=== PATIENT | male | born 1990 | race African-American/Black ===

== ENCOUNTER 2017-11-18 04:18 | Emergency (ER) | payer SELFPAY ==
[~2017-11-18] VITALS: Ht 172.7 cm; Wt 205.0 kg
[2017-11-18 04:30] VITALS: PULSE 100; RESP 16; O2SAT 97
[2017-11-18 04:37] VITALS: BP 136/58; PULSE 102; RESP 16; TEMP 98.3
[2017-11-18] MEDS ORDERED: ACETAMINOPHEN/HYDROcodone 325 MG/5 MG TAB PO ONE (04:45)
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
[2017-11-18] MEDS ORDERED: DICL75TA PO (05:01)
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
== END 2017-11-18 05:12 | disposition home or self-care (01) ==
LOC: NEPD 04:18
DX: S60.221A Contusion of right hand, initial encounter (principal); F17.200 Nicotine dependence, unspecified, uncomplicated; Y04.2XXA Assault by strike against or bumped into by another person, initial encounter
CPT/HCPCS: 73130; 99283; L3908